=== PATIENT | female | born 1990 | race Caucasian/White ===

== ENCOUNTER 2016-06-06 10:12 | Outpatient (CLI) | payer BC, OTHER ==
[~2016-06-06 10:12] MED LIST: IBUPROFEN600 MG PO
== END 2016-06-06 11:53 | disposition home or self-care (01) ==
LOC: GENOP 10:12
DX: O42.913 Preterm premature rupture of membranes, unspecified as to length of time between rupture and onset of labor, third trimester (principal); Z3A.33 33 weeks gestation of pregnancy
CPT/HCPCS: 81001; 83518; G0463

== ENCOUNTER 2016-07-02 18:26 | Inpatient (IN) | payer BC, OTHER ==
[2016-07-02 19:48] LABS: RED BLOOD COUNT 3.98 M/UL (4.00-5.10); WHITE BLOOD COUNT 9.2 K/UL (4.5-11.0)
[2016-07-03 03:04] LABS: HEMOGLOBIN 9.4 gm/dl (12.3-15.3)
[2016-07-06] MEDS ORDERED: COLACE 100MG C100 MG PO (10:31)
== END 2016-07-06 12:07 | disposition home or self-care (01) | DRG 766 ==
LOC: GENOP 18:26 → OB 19:50
PROVIDERS: ADMIT Obstetrics & Gynecology
PROC: 10D00Z1 Extraction of Products of Conception, Low, Open Approach (ICD-10-PCS; principal; 2016-07-02 20:51)
PROC: 3E0234Z Introduction of Serum, Toxoid and Vaccine into Muscle, Percutaneous Approach (ICD-10-PCS; 2016-07-04)
DX: O34.211 Maternal care for low transverse scar from previous cesarean delivery (principal); Z37.0 Single live birth; N85.8 Other specified noninflammatory disorders of uterus; O69.81X0 Labor and delivery complicated by cord around neck, without compression, not applicable or unspecified; Z3A.37 37 weeks gestation of pregnancy; Z23 Encounter for immunization
CPT/HCPCS: 36415; 81001; 82800; 85014; 85018; 85025; 90715; C9113; J0690; J2300; J2590; J2765; J3010; J3430; J7120

== ENCOUNTER 2020-05-03 19:55 | Outpatient (CLI) | payer OTHER ==
[~2020-05-03 19:55] MED LIST changes: +COLACE 100MG C100 MG PO; +DAYPRO600 MG PO; +OMNICEF 300 MG300 MG PO; +PEPCID20 MG PO; +PYRIDIUM200 MG PO; +ZONEGRAN100 MG PO
[2020-05-03 21:48] LABS: HEMOGLOBIN 10.3 gm/dl (12.3-15.3); RED BLOOD COUNT 3.56 M/UL (4.00-5.10); WHITE BLOOD COUNT 10.2 K/UL (4.5-11.0)
== END 2020-05-11 07:26 | disposition home or self-care (01) ==
LOC: GENOP 19:55
PROVIDERS: Obstetrics & Gynecology
DX: O62.9 Abnormality of forces of labor, unspecified (principal); O26.893 Other specified pregnancy related conditions, third trimester; R10.9 Unspecified abdominal pain; M54.5 Low back pain; O99.353 Diseases of the nervous system complicating pregnancy, third trimester; F41.9 Anxiety disorder, unspecified; F32.9 Major depressive disorder, single episode, unspecified; F43.10 Post-traumatic stress disorder, unspecified; G43.909 Migraine, unspecified, not intractable, without status migrainosus; Z88.5 Allergy status to narcotic agent; Z88.8 Allergy status to other drugs, medicaments and biological substances; Z91.048 Other nonmedicinal substance allergy status; Z3A.36 36 weeks gestation of pregnancy
CPT/HCPCS: 81001; 85025; 96361; J7120